=== PATIENT | female | born 1975 | race Caucasian/White ===

== ENCOUNTER 2019-07-27 23:01 | Emergency (ER) | payer OTHER, MEDICAID ==
[~2019-07-27] VITALS: Ht 177.8 cm; Wt 70.0 kg
[~2019-07-27 23:01] MED LIST: ACYC-114 PO; ALPR0.25 PO; HYDR25CA PO; IBUP-1222 PO; OXYC-307 PO; TIZA4CAP2 PO
[2019-07-27] MEDS ORDERED: ZIPRASIDONE 20 MG INJ IM ONE ×2 (23:07→23:30)
[2019-07-27 23:39] VITALS: BP 127/65
--- NOTE | 2019-07-27 23:42 | NUR ---
ANTON CLARK FROM [facility]. PT IN PSYCHOSIS WITH PRESSURED SPEACH AND PARINOIA. PT CLAIMING TO BE WITH 4 BABIES AND STATING SHE HAS PTSD AND NO ONE CAN TOUCH HER. PT UNABLE TO SIT STILL, YELLING AND SCREAMING IN ROOM 1. UNALBE TO OBTAIN VITALS AT THIS TIME DUE TO PT CONDITION. PT PHYSICALLY RESTRAINED BY SECURTY AND MEDICATED PER ER MD HOANG ORDERS. PT SCREAMING AND RESISTING INTERVENTIONS.
[2019-07-28] LABS: AMPHETAMINE SCREEN, URINE Negative (Negative); BARBITURATE SCREEN, URINE Negative (Negative); BENZODIAZEPINE SCREEN, URINE Negative (Negative); CANNABINOID SCREEN, URINE Positive (Negative); COCAINE SCREEN, URINE Negative (Negative); METHADONE SCREEN, URINE Negative (Negative); OPIATE SCREEN, URINE Negative (Negative)
--- NOTE | 2019-07-28 00:10 | NUR ---
VITALS OBTAINED. ALL OF PT BELONGINGS PLACED INTO ONE BAG, LABELED AND PLACED INTO LOCKER.
--- NOTE | 2019-07-28 00:12 | NUR ---
SITTER AT DOORWAY FOR DIRECT OBSERVATION. PT STATES SHE WANTS TO SLEEP. BLANKETS PROVIDED AND LIGHTS DIMMED.
[2019-07-28 00:13] LABS: BASOPHILS # (AUTO) 0.06 x10^3/uL (0-0.1); BASOPHILS % (AUTO) 1 % (0-1); EOSINOPHILS # (AUTO) 0.09 x10^3/uL (0-0.4); EOSINOPHILS % (AUTO) 1 % (1-7); LYMPHOCYTES # (AUTO) 2.22 x10^3/uL (1-3.4); LYMPHOCYTES % (AUTO) 24 % (22-44); MD NO; MEAN CORPUSCULAR HEMOGLOBIN 29.6 pg (27.0-34.8); MEAN CORPUSCULAR HGB CONC 33.8 g/dL (32.4-35.8); MEAN CORPUSCULAR VOLUME 87.6 fL (80-100); MEAN PLATELET VOLUME 9.4 fL (7.4-10.4); MONOCYTES # (AUTO) 0.91 x10^3/uL (0.2-0.8); MONOCYTES % (AUTO) 10 % (2-9); NEUTROPHILS % (AUTO) 65 % (42-75); PLATELET COUNT 224 x10^3/uL (130-400); RED BLOOD COUNT 4.71 x10^6/uL (3.82-5.3); RED CELL DISTRIBUTION WIDTH 13.6 % (9.6-15.2)
[2019-07-28 00:24] LABS: ALANINE AMINOTRANSFERASE 27 U/L (12-78); ALBUMIN 4.1 g/dL (3.4-5.0); ANION GAP 9 mmol/L (5-15); CALCIUM 9.3 mg/dL (8.5-10.1); CHLORIDE 110 mmol/L (98-107); CREATININE 0.72 mg/dL (0.55-1.02); SALICYLATE LEVEL 2.8 mg/dL (2.8-20.0)
[2019-07-28 00:29] LABS: ALKALINE PHOSPHATASE 59 U/L (45-117); BILIRUBIN,TOTAL 0.1 mg/dL (0.2-1.0); TOTAL PROTEIN 7.4 g/dL (6.4-8.2)
--- NOTE | 2019-07-28 00:57 | NUR ---
REPORT RECEIVED FROM CRISTELA BULL. PLAN OF CARE DISCUSSED. PATIENT SLEEPING, RESPIRATIONS EVEN AND UNLABORED. SITTER AT DOOR.
--- NOTE | 2019-07-28 00:58 | NUR ---
report to irina hastings
--- NOTE | 2019-07-28 01:59 | NUR ---
PATIENT SLEEPING, RESPIRATIONS EVEN AND UNLABORED. SITTER AT DOOR.
--- NOTE | 2019-07-28 02:18 | NUR ---
3e grzegorz garnica called to state, ins not accepted.
--- NOTE | 2019-07-28 02:30 | NUR ---
SPOKE WITH CRISTELA CATALAN AT [facility]. PATIENT ALREADY ADMITTED THERE, NEEDED TO HAVE L2K CERTIFIED AND PATIENT MEDICALLY CLEARED. PATIENT TO BE RETURNING TO [facility]. TRANSFER PAPERWORK COMPLETED AND FAXED TO [facility]. [facility] TO TRANSPORT.
--- NOTE | 2019-07-28 03:03 | NUR ---
[facility] ETA [id number]
--- NOTE | 2019-07-28 03:16 | NUR ---
PATIENT DISCHARGED AND TRANSPORTED WITH [facility]. AMBULATORY WITH STEADY GAIT WITH EMS
== END 2019-07-28 03:19 ==
LOC: ED 07-28 02:15
DX: F24 Shared psychotic disorder (principal); Z90.49 Acquired absence of other specified parts of digestive tract; Z90.89 Acquired absence of other organs; Z87.891 Personal history of nicotine dependence
CPT/HCPCS: 36415; 80053; 80307; 84703; 85025; 96372; 99285; J3486